=== PATIENT | female | born 1940 | race Caucasian/White ===

== ENCOUNTER 2017-01-17 07:15 | Inpatient (IN) | payer OTHER, BC ==
--- NOTE | 2017-01-09 09:58 | GHP ---
[f rep st] PREOP HISTORY AND PHYSICAL DATE OF ADMISSION: She will be an am admission for surgery at [facility] on 01/18/2017. PROBLEM: Right knee arthritis. HISTORY OF PRESENT ILLNESS: The patient is a 76-year-old woman admitted for right total knee arthroplasty on January 18, 2017. She injured her knee in a cross -country skiing accident in 2003. She injured her MCL and her PCL. She has subsequently developed degenerative arthritis. She has had Synvisc injections which were not much help. She had a cortisone injection in February 2016 which was helpful but temporary. She is having daily pain. She has swelling in the knee. Her pain has been much worse since August of 2016. She has occasionally used diclofenac in the past and found it somewhat helpful. She is admitted for right total knee arthroplasty. PAST MEDICAL HISTORY: She is treated for hypothyroidism and hypertension. CURRENT MEDICATIONS: Levothyroxine 25 mcg per day. Atenolol daily. She also uses Travatan eyedrops. No history of heart disease, DVT, hepatitis, or sleep apnea. Current medications: Atenolol 25 mg per day. Thyroid replacement 25 mcg per day. She uses prescription eye drops daily. ALLERGIES: Drug allergies: Cipro and sulfa cause itching. Metal allergy: None. Latex allergy: None. SOCIAL HISTORY: The patient is a . Her daughter lives in [place]. She does not smoke cigarettes and occasionally drinks alcohol. FAMILY HISTORY: Negative. PHYSICAL EXAMINATION: GENERAL: She is an alert, healthy elderly woman. Height 5 feet 3 inches. Weight 138 pounds. EYES: The conjunctivae and sclerae are clear. Pupils are round and reactive. MOUTH: Good oral hygiene. No loose teeth. CHEST: Clear. HEART: Regular rhythm. No murmurs. EXTREMITIES: Pertinent findings limited to her right knee. She has full extension, 120 degrees of flexion. She has a small effusion. Mild patellofemoral crepitation with active knee extension. Her collateral ligaments are stable. IMAGING: Films show degenerative arthritis in her right knee involving all 3 compartments. IMPRESSION ON ADMISSION: 1. Right knee degenerative arthritis. She is prepared for right total knee arthroplasty. 2. Treatment for hypothyroidism. 3. Treatment for hypertension. PLAN: She will undergo a right total knee arthroplasty. The surgery has been described to her, including the risks, complications, expectations, and recovery time. I have stressed to her the importance of postoperative physical therapy. She will either go home and her daughter will help her or she will go to her daughter's house following discharge. I stressed the importance of postoperative physical therapy. She understands that a small percentage of people do not get a good result with a total knee replacement. All her questions have been answered, and she consents to surgery. /[id number]/MODL MTDD
[2017-01-18] MEDS ORDERED: ROPIVACAINE 0.2% 80 MG, EPINEPHrine 0.2 MG, KETOROLAC TROMETHAMINE 30 MG in BAG 0 ML IU ONE (06:00)
[2017-01-18] MEDS ORDERED: TRANEXAMIC ACID 650 MG in NS 100 ML IV ONE (06:00)
[2017-01-18] MEDS ORDERED: POVIDONE-IODINE 20 ML in SODIUM CL IRRIG SOLUTION 500 ML IRR ONE (06:00)
[2017-01-18] MEDS ORDERED: DEXAMETHASONE 4 MG/ML VIAL IVP ONE (06:01)
[2017-01-18] MEDS ORDERED: ceFAZolin 2 GM/DEXTROSE 100 ML IV ONE (06:01)
[2017-01-18] MEDS ORDERED: ACETAMINOPHEN 325 MG TAB PO ONE (06:01)
[2017-01-18] MEDS ORDERED: FAMOTIDINE 20 MG TAB PO ONE (06:01)
[2017-01-18] MEDS ORDERED: LR 1,000 ML IV ONE (06:08)
[2017-01-18] MEDS ORDERED: LIDOCAINE 1% 2 ML INJ ID PRN (06:08)
[2017-01-18] MEDS ORDERED: LIDOCAINE 1% 2 ML INJ ONE (06:20)
[2017-01-18] MEDS ORDERED: VANCOMYCIN 1 GM VIAL ONE (06:49)
[2017-01-18] MEDS ORDERED: ceFAZolin 1 GM/5 ML SYR ONE (06:50)
--- NOTE | 2017-01-18 06:56 | PDANEPAE ---
ANE History of Present Illness Knee OA ANE Past Medical History - Cardiovascular History Hx Hypertension: Yes Hx Arrhythmias: No Hx Chest Pain: No Hx Coronary Artery / Peripheral Vascular Disease: No Hx CHF / Valvular Disease: No Hx Palpitations: No - Pulmonary History Hx COPD: No Hx Asthma/Reactive Airway Disease: No Hx Recent Upper Respiratory Infection: No Hx Oxygen in Use at Home: No Hx Sleep Apnea: No Sleep Apnea Screening Result - Last Documented: Negative - Neurologic History Hx Cerebrovascular Accident: No Hx Seizures: No Hx Dementia: No - Endocrine History Hx Diabetes: No - Renal History Hx Renal Disorders: No - Liver History Hx Hepatic Disorders: No Hepatic History Comment: "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 WHEN THEY SCAN FOR THE KINDEY " - Neurological & Psychiatric Hx Hx Neurological and Psychiatric Disorders: No - Cancer History Hx Cancer: No - Congenital Disorder History Hx Congenital Disorders: No - GI History Hx Gastrointestinal Disorders: No - Chronic Pain History Chronic Pain: No - Surgical History Prior Surgeries: RIGHT KIDNEY SURGERY 2011 (BACK PAIN-1/2 A KIDNEY) ANE Review of Systems - Exercise capacity METS (RN): 4 METS ANE Patient History - Allergies Allergies/Adverse Reactions: ciprofloxacin [From Cipro] Allergy (Verified 12/28/16 17:03) ITCHING/ RASH clindamycin Allergy (Verified 01/18/17 06:38) Diarrhea Sulfa (Sulfonamide Antibiotics) Allergy (Verified 12/28/16 17:03) Itching - Home Medications Home Medications: Atenolol [Tenormin 25 mg (*)] 25 mg PO DAILY 12/28/16 [Last Taken 01/18/17 04:45 ] C/E/Zn/Cu/OM3/DHA/EPA/LUT/ZEAX [Preservision Areds 2 Softgel] 1 each PO HS 12/28 [Last Taken 01/11/17] Calcium Carb W/Vit D [Calcium Carb W/Vit D 500/200 (*)] 500 mg PO 12/28/16 [ Last Taken 01/11/17] Levothyroxine [Synthroid 25 mcg (*)] 25 mcg PO DAILY06 12/28/16 [Last Taken 04:45] Travoprost Z 0.004% [Travatan Z 0.004% (*)] 1 drop EACHEYE 12/28/16 [Last Taken 01/17/17 20:00] Diclofenac-Misoprost 50-200 Tb 01/02/17 [Last Taken 01/09/17] - NPO status NPO Since - Liquids (Date): 01/17/17 NPO Since - Liquids (Time): 21:00 NPO Since - Solids (Date): 01/17/17 NPO Since - Solids (Time): 20:00 - Smoking Hx Smoking Status: Never smoked - Family Anes Hx Family Hx Anesthesia Complications: N/A ANE Labs/Vital Signs - Vital Signs Blood Pressure: 151/70 Heart Rate: 53 Respiratory Rate: 20 O2 Sat (%): 95 Height: 165.1 cm Weight: 63.503 kg ANE Physical Exam - Airway Neck exam: FROM Mallampati Score: Class 2 Mouth exam: normal dental/mouth exam - Pulmonary Pulmonary: no respiratory distress - Cardiovascular Cardiovascular: regular rate and rhythym - ASA Status ASA Status: II ANE Anesthesia Plan Anesthesia Plan: MAC, spinal Regional Anesthesia: adductor canal FNB
--- NOTE | 2017-01-18 06:57 | PDHPUP ---
History & Physical Update H&P update statement: This history and physical update is based on an assessment of the patient which was completed after admission or registration (within 24 hours), but prior to the surgery/procedure. H&P update: H&P reviewed & patient examined, no change in patient's condition since H&P completed
[2017-01-18] MEDS ORDERED: MIDAZOLAM 2 MG/2 ML VIAL IVP ONE (07:01)
[2017-01-18] MEDS ORDERED: MIDAZOLAM 2 MG/2 ML VIAL ONE (07:04)
[2017-01-18] MEDS ORDERED: PROPOFOL/EMULSION 500 MG/50 ML BOTTLE IV ONE (07:14)
[2017-01-18] MEDS ORDERED: epHEDrine SULFATE 10 MG/ML SYR ONE ×2 (07:54→08:21)
[2017-01-18] MEDS ORDERED: ONDANSETRON 4 MG/2 ML VIAL IVP PRN ×2 (08:04→09:08)
[2017-01-18] MEDS ORDERED: NALOXONE HCL 0.4 MG/ML INJ IVP PRN (08:04)
[2017-01-18] MEDS ORDERED: HYDROmorphONE/DILAUDID 1 MG/ML SYR IVP PRN (08:04)
[2017-01-18] MEDS ORDERED: ROPIVACAINE HCL 150 MG/30 ML INJ ONE (08:21)
--- NOTE | 2017-01-18 08:59 | POSTOPPROG ---
Post Op Note Date of Operation: 01/18/17 Surgeon: Rafita Estrella Swing Tender: Audi Ramírez/Ran Wahl Anesthesiologist: Rito Guillaume Anesthesia: IV Sedation, Spinal Post-op Diagnosis: Right knee arthritis Procedure: Right total knee arthroplasty Inf/Abcess present in the surg proc area at time of surgery?: No EBL: 50-100 (Adductor canal block)
[2017-01-18] MEDS ORDERED: LACTULOSE 20 GM/30 ML UDCUP PO PRN (09:08)
[2017-01-18] MEDS ORDERED: TEMAZEPAM 15 MG CAP PO PRN (09:08)
[2017-01-18] MEDS ORDERED: MAGNESIUM HYDROXIDE 30 ML UDCUP PO PRN (09:08)
[2017-01-18] MEDS ORDERED: BISACODYL 10 MG SUPP PR PRN (09:08)
[2017-01-18] MEDS ORDERED: PHARMACY PAIN CONSULT 1 EA MISC PRN (09:08)
[2017-01-18] MEDS ORDERED: PROMETHAZINE HCL 25 MG/ML INJ IVP PRN (09:08)
[2017-01-18] MEDS ORDERED: KETOROLAC 30 MG/1 ML SDV IVP PRN (09:08)
[2017-01-18] MEDS ORDERED: METOCLOPRAMIDE 10 MG/2 ML VIAL IVP PRN (09:08)
[2017-01-18] MEDS ORDERED: POLYETHYLENE GLYCOL 3350 17 GM PKT PO PRN (09:08)
[2017-01-18] MEDS ORDERED: diphenhydrAMINE 25 MG CAP PO PRN (09:08)
[2017-01-18] MEDS ORDERED: NS 500 ML IV PRN (09:08)
[2017-01-18] MEDS ORDERED: CYCLOBENZAPRINE 10 MG TAB PO PRN (09:08)
[2017-01-18] MEDS ORDERED: DIPHENOXYLATE/ATROPINE LOMOTIL 1 TAB PO PRN (09:08)
[2017-01-18] MEDS ORDERED: PROMETHAZINE HCL 25 MG SUPPR PR PRN (09:08)
[2017-01-18] MEDS ORDERED: oxyCODONE IR 5 MG TAB PO PRN (09:08)
[2017-01-18] MEDS ORDERED: ONDANSETRON DISINTEGRATING 4 MG TAB PO PRN (09:08)
--- NOTE | 2017-01-18 09:22 | POSTANESTH ---
Post Anesthetic Evaluation Cardiovascular Status: Normal, Stable Respiratory Status: Normal, Stable Level of Consciousness/Mental Status: Can Participate in Eval Pain Control: Adequate, Prn Tx Ordered Nausea/Vomiting Control: Adequate, Prn Tx Ordered Complications Possibly Related to Anesthesia: None Noted
[2017-01-18] MEDS ORDERED: LR 1,000 ML IV SCH (09:30)
[2017-01-18] MEDS: ACETAMINOPHEN 325 MG TAB PO SCH ×3 (12:45→23:17)
--- NOTE | 2017-01-18 13:35 | GOP ---
[f rep st] OPERATIVE REPORT DATE OF OPERATION: 01/18/2017 SURGEON: Rafita Estrella MD PLANNER INTERNSHIP: Jefferson Ramírez, PAC and Ran Wahl DRAFTING INSTRUCTOR. ANESTHESIA: A combination of spinal, IV sedation, and adductor canal block. ANESTHESIOLOGIST: Perez Guillaume MD. PREOPERATIVE DIAGNOSIS: Right knee degenerative arthritis. POSTOPERATIVE DIAGNOSIS: Right knee degenerative arthritis. PROCEDURE PERFORMED: Right total knee arthroplasty, Blount and Nephew Yesenia II, cemented, posterio r stabilized. FINDINGS: ESTIMATED BLOOD LOSS: The estimated blood loss following deflation of the tourniquet was about 100 cc. The sponge and needle counts were correct on 2 occasions. She was awakened from anesthesia, transferred to her hospital [facility] and taken to PACU in satisfacto ry condition. There were no recognized intraoperative complications. In the PACU, for additional postoperative pain control, Dr. Guillaume performed an adductor canal block. Audi Ramírez and Ran Wahl acted as surgical assistants. Their assistance was a medical [facility]. DESCRIPTION OF PROCEDURE: The patient was given 2 g of IV Ancef preoperatively within 60 minutes of surgery. She also received IV tranexamic acid at a dose of 10 mg/kg. She was placed on the operat ing room table and given spinal anesthesia with Marcaine by Dr. Guillaume. She was then placed s upine and given IV sedation. A Ferguson catheter was not used. She wore a JACOB stocking and SCD on the nonoperative leg. Her right lower extremity was prepped with ChloraPrep from the upper thigh tourn iquet to the tips of the toes. It was draped free using sterile sheets, stockinette, and Ioban plas tic adhesive drape. The lower leg was wrapped with compressive Coban. The leg was exsanguinated wi th elevation and a 6-inch compressive wrap, and the pneumatic tourniquet was inflated to 275 mmHg. The World Health Organization time-out was performed to verify the correct patient identity and the correct surgical side and site. The [place] time-out was also performed. The TiVoayo leg holding device was sterilely attached to the operating room table and used throughout the procedure to help position the knee. A straight midline incision was made centered on the rea lla. Subcutaneous tissues were sharply divided, and hemostasis was obtained using electrocautery. A medial subcutaneous flap was developed, and the capsule and synovium were opened in a medial parap atellar fashion. The medial capsule and periosteum were lightly elevated off the rim of the medial tibial plateau all the way around to the posteromedial corner. Her medial collateral ligament was m inimally released. In order to improve exposure, her patella was prepared first. The original thickness of the patella was measured. Peripheral osteophytes were removed. I cut a flat surface on the back of the holly montero. She was sized for a 29 mm resurfacing component. The original thickness of her patella was 19 m m. I wanted to end up with a composite thickness of 21 mm. I removed enough bone such that the rem aining bone, plus the thickness of the patellar component, created a 21 mm composite thickness. The intramedullary alignment guide system was used to set up the distal femoral cut. The distal fem ur was cut in 5 degrees of valgus. She had full extension and even a little bit of hyperextension a nd so I did not make the +2 mm cut. The sizing jig was used to determine proper femoral sizing. Lucius saab was sized for a size 3 component. The 5-in-1 cutting block was applied, and the anterior and post erior condylar cuts were made. I shifted the jig anteriorly 2 mm in order to avoid notching the ant erior cortex. The final jig was used to remove the central portion of the distal femur to accommoda te the posterior stabilized femoral component. I was careful to determine proper rotation by refere ncing off Whitesides line. Each cut was checked for accuracy before and after it was made. The fem ur was sized for a size 3 posterior stabilized component. Next, the tibia was prepared. The proximal tibial cut was made using the extramedullary alignment g uide system. The cut was made in a few degrees of posterior slope. I was careful to achieve proper varus-valgus alignment and proper rotation. The posterior compartment was cleared of meniscal remn ants. Osteophytes were removed from the back of her femoral condyles. I checked the flexion and ex tension gaps, and they were equal, balanced and rectangular. The tibia was sized for a size 3 component. With the trial components in place, I selected a 10 mm polyethylene posterior stabilized tibial insert. The knee came to full extension and flexed to 130 degrees. There is no overstuffing in flexion. Her collateral ligaments were stable and balanced in 90 degrees of flexion and full extension. The trial patellar button was applied, and tracking was excellent without any digital pressure. 40 mL of the joint anesthetic cocktail were injected into the posterior capsule, the periarticular s tructures, the quadriceps muscle and tendon areas, and the subcutaneous tissues along the skin edges . A second dose of IV tranexamic acid was given at a dose of 10 mg/kg. The surfaces were prepared for cementing. They were carefully cleaned with the pulsating lavage irr igation and thoroughly dried. CarboJet device was used to blow dry the cancellous surfaces. A doub le batch of high viscosity methylmethacrylate cement with 2 g of added powdered vancomycin was mixed . While it was still in a semi-liquid state, all 3 components were cemented in place. Excess cemen t was removed before it hardened. The 10 mm trial tibial insert was re-tried and was the proper thickness. The actual component was i nserted and locked into place. The knee was thoroughly irrigated 1 final time with a dilute Betadin e solution. The tourniquet was deflated. Total tourniquet time was 44 minutes. The vastus medialis portion of the extensor mechanism was repaired with several interrupted figure-o [id number] #2 FiberWire sutures. The capsule and synovium were closed first with multiple interrupted [id number] PDS sutures, followed by a running #2 barbed Ethicon Stratafix PDO suture. Subcut aneous tissues were closed with a running 0 barbed Ethicon Stratafix Monoderm suture. The skin was closed with a running 3-0 barbed Ethicon Stratafix Monoderm subcuticular suture. The skin was asad d with 1/2-inch Steri-Strips. The wound was covered with Xeroform gauze and flat 4 x 4's, and the k nee was wrapped with Kerlix and a 6-inch compressive wrap. A long-leg JACOB stocking and SCD were padmini lied followed by the cooling device. She wore a stocking and SCD on the opposite leg during the pro cedure. I used a size 3 cemented Blount and Nephew Oxinium posterior stabilized femoral component, a size 3 c emented tibial base plate, a 10 mm posterior stabilized tibial insert, and a 29 mm cemented round al l-polyethylene resurfacing patellar component. Copy requested to: Dr. Dilcia Rosales /[id number]/MODL
[2017-01-18] MEDS: ceFAZolin 2 GM/DEXTROSE 100 ML IV SCH ×2 (14:42→21:01)
[2017-01-18] MEDS: traMADol 50 MG TAB PO PRN (18:40)
[2017-01-18] MEDS ORDERED: PRESERVISION AREDS2 FORMULA EYE VIT 1 EACH PO SCH (21:00)
[2017-01-18] MEDS ORDERED: TRAVOPROST Z 0.004% 2.5 ML OPHT.BTL EACHEYE SCH (21:00)
[2017-01-18] MEDS: FAMOTIDINE 20 MG TAB PO SCH (21:01)
[2017-01-18] MEDS: SENNOSIDES/DOCUSATE SODIUM TAB PO SCH (21:01)
[2017-01-18] MEDS: ASPIRIN 325 MG TAB PO SCH (21:01)
[2017-01-19] MEDS: ACETAMINOPHEN 325 MG TAB PO SCH ×2 (05:08→12:26)
[2017-01-19 05:12] LABS: HEMATOCRIT 33.2 % (38.0-47.0); HEMOGLOBIN 11.3 g/dL (12.6-16.3)
[2017-01-19] MEDS ORDERED: LEVOTHYROXINE 25 MCG TAB PO SCH (06:00)
[2017-01-19 07:46] VITALS: O2SAT 96
[2017-01-19] MEDS: ASPIRIN 325 MG TAB PO SCH (08:56)
[2017-01-19] MEDS: FAMOTIDINE 20 MG TAB PO SCH (08:57)
[2017-01-19] MEDS: SENNOSIDES/DOCUSATE SODIUM TAB PO SCH (08:59)
[2017-01-19] MEDS ORDERED: ATENOLOL 25 MG TAB PO SCH (09:00)
[2017-01-19] MEDS ORDERED: FERROUS SULFATE 140 MG TAB.ER PO SCH (09:00)
--- NOTE | 2017-01-19 09:10 | SOAPPROG ---
SOAP Progress Note Assessment/Plan: Assessment: POD #1, s/p R TKA Awake, alert, afebrile. Mild pain. Dressing clean and dry. H/H ok. OOB with PT. Plan: D/c to home later today. 01/19/17 09:09 Objective: Vital Signs Temp Pulse Resp BP Pulse Ox 36.8 C 57 L 16 115/58 L 96 01/19/17 07:45 01/19/17 08:56 01/19/17 07:45 01/19/17 08:56 01/19/17 07:45 Laboratory Results 01/19/17 04:14 01/18/17 01/19/17 01/20/17 05:59 05:59 05:59 Intake Total 1380 Output Total 950 400 Balance 430 -400 ICD10 Worksheet Patient Problems: Problems Problem Status Onset Osteoarthritis of right knee Acute
--- NOTE | 2017-01-19 09:13 | PDIAF ---
- Diagnosis Diagnosis: R knee OA Code Status: Full Code - Medication Management Discharge Medications: Medications to Continue on Transfer Atenolol [Tenormin 25 mg (*)] 25 mg PO DAILY 12/28/16 [Last Taken 01/18/17 04:45 ] C/E/Zn/Cu/OM3/DHA/EPA/LUT/ZEAX [Preservision Areds 2 Softgel] 1 each PO HS 12/28 [Last Taken 01/11/17] Calcium Carb W/Vit D [Calcium Carb W/Vit D 500/200 (*)] 500 mg PO HS 12/28/16 [ Last Taken 01/11/17] Levothyroxine [Synthroid 25 mcg (*)] 25 mcg PO DAILY06 12/28/16 [Last Taken 04:45] Travoprost Z 0.004% [Travatan Z 0.004% (*)] 1 drop EACHEYE HS 12/28/16 [Last Taken 01/17/17 20:00] Diclofenac Sodium [Voltaren 75 MG (*)] 75 mg PO BID 01/02/17 [Last Taken ] Acetaminophen [Tylenol 325mg (*)] 650 mg PO Q6HRS #0 tab 01/19/17 [Last Taken Unknown] Aspirin [Aspirin 325 mg (*)] 325 mg PO DAILY #21 tab 01/19/17 [Last Taken Unknown] Ferrous Sulfate [Slow Fe 140 MG (*)] 140 mg PO DAILY #30 tab.er 01/19/17 [Last Taken Unknown] Ondansetron Odt [Zofran Odt 4 mg (*)] 4 mg PO Q4HRS PRN #0 tab 01/19/17 [Last Taken Unknown] oxyCODONE IR [Oxycodone Ir (*)] 5 - 10 mg PO Q3HRS PRN #0 tab 01/19/17 [Last Taken Unknown] traMADol [Ultram 50 mg (*)] 50 mg PO Q6HRS PRN #0 tab 01/19/17 [Last Taken Unknown] Discharge Medications: Refer to the Discharge Home Medication list for PRN reason. PICC Care - Routine: N/A - Orders Services needed: Home Care, Physical Therapy Home Care Face to Face: I certify that this patient was under my care and that I had the required [id number] encounter meeting the encounter requirements on the discharge day. My findings support the fact that the patient is homebound as defined in CMS Chapter 7 Medicare Benefits Manual 30.1.1, The condition of the patient is such that there exists a normal inability to leave home and consequently, leaving home would require a considerable and taxing effort. Diet Recommendation: no restrictions on diet Diet Texture: Regular Texture Diet Ferguson: Not applicable Abel Stockings Discontinue Date: 1 week Wound Care Instructions: keep clean and dry. You may shower. Activity/Weight Bearing Restrictions: as tolerated. Equipment: zero knee while in bed as tolerated. - Follow Up Care Current Providers and Referrals: NONE *PRIMARY CARE P,. [Primary Care Provider] - Rafita Estrella MD [Medical Doctor] - 02/09/17
[2017-01-19] MEDS: traMADol 50 MG TAB PO PRN (10:14)
[2017-01-19 12:17] VITALS: BP 124/61; PULSE 47; RESP 14; TEMP 97.3
== END 2017-01-19 16:28 | disposition home health service (06) | DRG 470 ==
LOC: F3N 01-18 05:41
PROVIDERS: ADMIT Orthopaedic Surgery; ATTEND Orthopaedic Surgery
PROC: 0SRC0J9 Replacement of Right Knee Joint with Synthetic Substitute, Cemented, Open Approach (ICD-10-PCS; principal; 2017-01-18 07:15)
DX: M17.11 Unilateral primary osteoarthritis, right knee (principal); E03.9 Hypothyroidism, unspecified; I10 Essential (primary) hypertension
CPT/HCPCS: 97110-GP; 97116-GP; 97161-GP; 97165-GO; 97530-GP; C1713; G8978-GP-CI; G8979-GP-CI; G8987-GO-CI; G8988-GO-CI; G8989-GO-CI; J0171; J0690; J1100; J1885; J2250; J2704; J2795; J3370

== ENCOUNTER → 2017-05-10 | Outpatient (CLI) | payer OTHER, BC | LOC: BMCIMAGING 13:28 | PROVIDERS: ATTEND Internal Medicine | DX: Z12.31 Encounter for screening mammogram for malignant neoplasm of breast (principal) | CPT/HCPCS: G0202 ==

== ENCOUNTER → 2018-05-31 | Outpatient (CLI) | payer OTHER, BC | LOC: BMCIMAGING 12:37 | PROVIDERS: ATTEND Internal Medicine | DX: Z12.31 Encounter for screening mammogram for malignant neoplasm of breast (principal) ==

== ENCOUNTER → 2018-07-04 | Outpatient (CLI) | payer OTHER, BC | LOC: BMCIMAGING 10:54 | PROVIDERS: ATTEND Podiatrist Foot & Ankle Surgery | DX: M77.32 Calcaneal spur, left foot (principal); M79.672 Pain in left foot ==